=== PATIENT | male | born 1995 | race Caucasian/White ===

== ENCOUNTER 2021-04-19 09:42 | Emergency (ER) | payer OTHER, SELFPAY ==
[2021-04-19 10:03] VITALS: BP 107/60; PULSE 46; RESP 14; TEMP 36.1; O2SAT 99; BMI 30.5
[2021-04-19 10:48] LABS: COVID19 -Nasal RAPID Negative (Negative)
--- NOTE | 2021-04-19 12:24 | ED.URI ---
HPI - URI/Sore Throat <PATRICK Sewell - Last Filed: 04/19/21 12:27> General Chief Complaint: Upper Respiratory Symptoms Stated Complaint: SOB, fatigue, congestion- active duty Time Seen by Provider: 04/19/21 12:19 Source: patient Mode of arrival: Ambulatory History of Present Illness HPI Narrative: 25-year-old male presents to the emergency department with congestion, cough and requesting COVID testing. His symptoms started 3 days ago, he has had multiple COVID exposures. Patient is COVID vaccinated x3, denies any shortness of breath, wheezing, fever, pre-existing lung disease, or other serious medical condition. Patient requests testing prior to returning to work. Patient denies taking any medications prior to arrival Related Data Allergies Allergy/AdvReac Type Severity Reaction Status Date / Time No Known Drug Allergies Allergy Verified 04/19/21 10:03 Review of Systems <PATRICK Sewell - Last Filed: 04/19/21 12:27> Review of Systems Narrative: General: denies fever, chills Head/Neck: denies headache, neck pain endorses having congestion Eyes: denies visual changes, eye pain Cardio: denies chest pain, palpitations Respiratory: denies shortness of breath, cough GI: denies abdominal pain, nausea, vomiting, or diarrhea : denies dysuria, hematuria MSK: denies joint pain, muscle weakness Skin: denies rash, itching Neuro: denies numbness, tingling Patient History <PATRICK Sewell - Last Filed: 04/19/21 12:27> Social History Smoking Status: Unknown if ever smoked Smoking Status: Unknown if ever smoked alcohol intake frequency: holidays/special occasions only Substance Use Type: does not use Exam <PATRICK Sewell - Last Filed: 04/19/21 12:27> Narrative Exam Narrative: Independently reviewed vitals signs and nursing notes. General: Awake, alert, nontoxic, no cardiorespiratory distress Head/Neck: Atraumatic, neck full range of motion Eyes: EOMI, conjunctiva normal, no scleral injection bilaterally Nose: nares patent, no rhinorrhea Mouth/Throat: moist mucus membranes, posterior pharynx normal, no oral lesions Cardio: Regular rate and rhythm, no peripheral edema Respiratory: respirations unlabored without wheezing, stridor, or rales. No retractions. GI: Abdomen soft, nontender MSK: Moves all extremities, neurovascularly intact Skin: Normal capillary refill, no rash Neuro: Normal speech and cognition, normal gait Initial Vital Signs Initial Vital Signs: Vital Signs Temperature 97.0 F L 04/19/21 10:03 Pulse Rate 46 L 04/19/21 10:03 Respiratory Rate 14 04/19/21 10:03 Blood Pressure 107/60 04/19/21 10:03 Pulse Oximetry 99 04/19/21 10:03 <Alejandro Ac MD - Last Filed: 04/24/21 12:31> Initial Vital Signs Initial Vital Signs: Vital Signs Temperature 97.0 F L 04/19/21 10:03 Pulse Rate 46 L 04/19/21 10:03 Respiratory Rate 14 04/19/21 10:03 Blood Pressure 107/60 04/19/21 10:03 Pulse Oximetry 99 04/19/21 10:03 Course <PATRICK Sewell - Last Filed: 04/19/21 12:27> Orders Ordered: ED Orders 04/19/21 10:06 COVID19 -Nasal swab/Pre-Proc Stat Vital Signs Vital signs: Vital Signs - 8 hr 04/19/21 10:03 Temperature 97.0 F L Pulse Rate 46 L Respiratory Rate 14 Blood Pressure 107/60 Pulse Oximetry 99 <Alejandro Ac MD - Last Filed: 04/24/21 12:31> Orders Ordered: ED Orders 04/19/21 10:06 COVID19 -Nasal swab/Pre-Proc Stat Vital Signs Vital signs: Vital Signs - 8 hr 04/19/21 10:03 Temperature 97.0 F L Pulse Rate 46 L Respiratory Rate 14 Blood Pressure 107/60 Pulse Oximetry 99 MDM - URI/Sore Throat <PATRICK Sewell - Last Filed: 04/19/21 12:27> Lab Data Labs: Lab Results 04/19/21 Range/Units 10:06 SARS-CoV-2 (PCR) Negative (Negative) MDM Narrative Medical decision making narrative: 25-year-old male presents to the emergency department for COVID testing on day 3 of symptoms. Presentation suggestive of viral syndrome/URI without evidence of hypoxia, respiratory distress, dehydration, or focal exam to suggest secondary bacterial infection. COVID negative. Discussed supportive treatments: Tylenol/Motrin as needed for pain/fever. OTC decongestant medications and/or antihistamines for symptomatic relief. Maintain adequate fluid intake. Follow-up with PCP as directed. Return to clinic/ER instructions discussed for new, not improving, or worsening symptoms. All questions answered. <Alejandro Ac MD - Last Filed: 04/24/21 12:31> Lab Data Labs: Lab Results 04/19/21 Range/Units 10:06 SARS-CoV-2 (PCR) Negative (Negative) Discharge Plan Departure Patient Disposition: Home Clinical Impression: Upper respiratory infection, Encounter for screening laboratory testing for COVID-19 virus Instructions: DI for Viral Syndrome Activity Restrictions/Additional Instructions: *You have been diagnosed with most likely a viral illness, your COVID test was negative today. Great news that you are already starting to get better. If you have ongoing congestion symptoms, [id number] things like Flonase, NyQuil, antihistamines can be helpful. Stay hydrated, thank you for testing, thank you for being vaccinated. I wish you the best. *What to do: *Please continue to take your regular medications as directed. [ ] New medication prescriptions sent to your pharmacy: [ ] [ ] New medication written as a paper prescription [x ] No new medications given *Please follow up with your primary care provider in 2-3 days, call for an appointment. Let them know you were seen in the Emergency Department and that we ask that you be seen in follow up. We will electronically transmit a record of today's note if your PCP is in our system *If you do not have a primary care provider please contact the [facility] Resource line at [phone]. They will ask some questions about your medical history and help get you set up with a doctor in the community. *Return to Emergency Department if you should have any new, worsening or concerning symptoms, such as [fever greater than 101F, chills, worsening pain, persistent vomiting or other bothersome symptoms] <Alejandro Ac MD - Last Filed: 04/24/21 12:31> Cosign ED Attending Elviraature Attestation: I was immediately available in the department for consultation. This documentation has been reviewed and I agree with assessment and plan. Supervised by Alejandro Ac MD
== END 2021-04-19 12:54 | disposition home or self-care (01) ==
PROVIDERS: Emergency Medicine; Emergency Provider Nurse Practitioner Critical Care Medicine
DX: J06.9 Acute upper respiratory infection, unspecified (principal); Z20.822 Contact with and (suspected) exposure to COVID-19
CPT/HCPCS: 87635; 99281; 99282; C9803

== ENCOUNTER → 2022-03-05 10:07 | Outpatient (CLI) | payer OTHER, SELFPAY ==
--- NOTE | 2022-03-05 | DI.ECHO.S_ITS ---
[facility] +---------+ : : [address] : [place] : : : : [id number] : : : : Phone: [phone]+ Echocardiogram Report + + :Name: CHRISSY ALEXANDRE Study Date: 03/05/2022 Height: 72 in : :[facility] ReadingLocation: Weight: 215 lb : : Gender: Male BSA: 2.2 m2 : :: 1995 Age: 26 yrs BP: 133/69 mmHg: :Reason For Study: Palpitations : :Ordering Physician: Albin, : :Sonia Performed By: Jose Luis Carrillo : :Referring: Sonia Talamantes : + + Interpretation Summary Normal echo study. Procedure: A two-dimensional transthoracic echocardiogram with color flow and Doppler was performed. The study quality was technically adequate. There is no prior echocardiogram noted for this patient. The patient was in sinus bradycardia with heart rates between 45-52 bpm during the exam. Left Ventricle: The left ventricle is normal in size and wall thickness. Left ventricular systolic function is normal. The ejection fraction is estimated to be 55-60%. There are no focal wall motion abnormalities. Diastolic parameters suggest probable normal left ventricular diastolic function and normal filling pressures. Right Ventricle: The right ventricle is normal in size and function. Atria: Both atria are normal in size. The interatrial septum grossly appears intact with no obvious evidence for an atrial septal defect. Mitral Valve: The mitral valve is normal in structure and function. There is no mitral regurgitation noted. Aortic Valve: The aortic valve is normal in structure and function. No aortic regurgitation is present. Tricuspid Valve: The tricuspid valve is normal in structure and function. There is trace tricuspid regurgitation. Pulmonary artery pressures cannot be estimated because of the lack of a measurable TR jet velocity. Pulmonic Valve: The pulmonic valve is normal in structure and function. There is a trace or physiologic amount of pulmonic regurgitation. Great Vessels: The aortic root is normal size. The dimensions of the ascending aorta are normal. The IVC is of normal diameter and collapses greater than 50% with a sniff. This suggests a low right atrial pressure of 3 mm Hg. Pericardium/ Pleura There is no pericardial effusion. There is no pleural effusion. MMode/2D Measurements & Calculations LVIDd: 5.7 cm LVOT diam: 2.2 cm LVIDs: 3.9 cm Ao root diam: 2.7 cm FS: 31.6 % asc Aorta Diam: 3.1 cm IVSd: 1.1 cm LVPWd: 1.0 cm LV hogan. diameter/BSA (cm/m^2): 2.6 LV sys. diameter/BSA (cm/m^2): 1.8 LA dimension: 4.1 cm RA long axis: 5.0 cm LA A2 area: 21.2 cm2 LA A4 area: 19.7 cm2 LA length (vol): 5.2 cm LA vol: 67.8 ml LA vol index: 30.9 ml/m2 TAPSE_phl: 2.4 cm Doppler Measurements & Calculations Ao V2 max: 146.0 cm/sec LVOT Max Chad: 146.0 cm/sec Ao V2 mean: 98.8 cm/sec LV V1 max P.5 mmHg Ao max P.0 mmHg LV V1 VTI: 27.8 cm Ao mean P.0 mmHg NUNU(I,D): 3.6 cm2 Ao V2 VTI: 29.1 cm NUNU(V,D): 3.8 cm2 sev ratio: 0.96 NUNU indexed to BSA (cm^2/m^2): 1.7 MV E max chad: 85.9 cm/sec SV(LVOT): 105.7 ml MV A max chad: 38.8 cm/sec MV E/A: 2.2 Med Peak E' Chad: 10.2 cm/sec E/E' med: 8.4 Lat Peak E' Chad: 17.2 cm/sec E/E' lat: 5.0 E/e' average: 6.7 MV dec time: 0.27 sec AV VR_phl: 1.0 MV P1/2t-pr_phl: 78.0 msec NUNU(VTI)/BSA_phl: 1.6 Electronically signed by: Barbara Rosen on Reading Physician:03/05/2022 10:38 PM
== END ==
PROVIDERS: Referring Provider Family Medicine; Visit Provider Family Medicine
DX: R00.2 Palpitations (principal)
CPT/HCPCS: 93306